=== PATIENT | male | born 1960 | race Caucasian/White ===

== ENCOUNTER 2020-03-04 07:03 | Day surgery (SDC) | payer MEDICARE, BC ==
[~2020-03-04 07:03] MED LIST: Bupivacaine 0.5% 50 ML MDV ONE; Lidocaine 1% with EPINEPHrine 1:100,000 50 ML MDV ONE
[2020-03-04] MEDS ORDERED: Dexamethasone 4 MG/ML SDV ONE (07:16)
[2020-03-04] MEDS ORDERED: Neostigmine Methylsulfate 1 MG/ML 5 ML Syringe ONE (07:16)
[2020-03-04] MEDS ORDERED: Glycopyrrolate 0.2 MG/ML 5 ML MDV ONE (07:16)
[2020-03-04] MEDS ORDERED: Succinylcholine 200 MG/10 ML MDV ONE (07:16)
[2020-03-04] MEDS ORDERED: Propofol 200 MG/20 ML SDV ONE (07:16)
[2020-03-04] MEDS ORDERED: fentaNYL 250 MCG/5 ML SDV ONE ×2 (07:16→09:20)
[2020-03-04] MEDS ORDERED: Rocuronium 50 MG/5 ML Vial ONE (07:16)
[2020-03-04] MEDS ORDERED: Ondansetron 4 MG/2 ML SDV ONE (07:16)
[2020-03-04] MEDS ORDERED: ceFAZolin 2 GM in Premix Bag 1 BAG IV ONE (07:30)
[2020-03-04] MEDS ORDERED: Sodium Chloride 0.9% 1,000 ML IV SCH (07:30)
[2020-03-04] MEDS ORDERED: metroNIDAZOLE/Normal Saline 500 MG in Premix Bag 1 BAG IV ONE (07:30)
[2020-03-04] MEDS ORDERED: Labetalol 20 MG/4 ML Syringe ONE (09:16)
[2020-03-04] MEDS ORDERED: hydrOXYzine HCL 100 MG/2 ML SDV IM PRN (09:42)
[2020-03-04] MEDS ORDERED: Bisacodyl 5 MG Tab PO PRN (09:42)
[2020-03-04] MEDS ORDERED: Benzocaine/Cetylpyridinium/Menthol Lozenge MUCMEM PRN (09:42)
[2020-03-04] MEDS ORDERED: Docusate Sodium 100 MG Cap PO PRN (09:42)
[2020-03-04] MEDS ORDERED: metFORMIN 500 MG Tab PO ONE (11:43)
[2020-03-04] MEDS ORDERED: glipiZIDE 5 MG Tab.ER PO ONE (11:44)
[2020-03-04] MEDS ORDERED: glipiZIDE 5 MG Tab PO ONE (11:50)
[2020-03-04] MEDS: Acetaminophen/oxyCODONE 325-10 MG Tab PO PRN ×2 (12:20→12:54)
--- NOTE | 2020-03-04 13:22 | OR ---
DATE OF PROCEDURE: 03/04/2020 SURGEON: Dawson Lang MD PROCEDURE: Ventral hernia repair, laparoscopic, incarcerated, 3.2 cm. COMPLICATIONS: None. SCREEN WRITER: None. ANESTHESIA: General. RISKS: Risks, benefits, alternatives, and limitations including, but not limited to infection, bleeding, perforation, and risks of mesh, reoperation, seroma, hematoma, and other risks not listed here along with chronic pain were explained to the patient and they wished to proceed. PROCEDURE IN DETAIL: The patient was placed in supine position. In the left upper abdomen, a 10 mm incision was made. A Veress needle was used to enter the abdomen without abnormality and a drop test was performed without abnormality. The abdomen was subsequently insufflated. No evidence of enterotomy or injury was noted. After Optiview trocar insertion, 2 additional 5 mm ports were entered under direct visualization, 1 in the left lower abdomen, 1 in the right. The hernia was identified and was noted to be incarcerated with omentum. This was removed using blunt and sharp dissection. The sac was removed using Harmonic Scalpel equivalent. This was delivered and not sent to pathology. A 10 cm piece of mesh was then introduced and tacked into place along with Vicryl suturing. This was approximately 1 cm in a circumferential manner and in 2 separate rings. The air was removed. The wounds were irrigated, closed with 3-0 Vicryl and 4-0 Vicryl, and Dermabond was applied. Dawson Lang MD /[id number]
[2020-03-04 13:32] VITALS: BP 145/65; PULSE 83
--- NOTE | 2020-03-04 14:12 | OR ---
DATE OF PROCEDURE: 03/04/2020 SURGEON: Dawson Lang MD PROCEDURE: Transversus abdominis plane block bilaterally. COMPLICATION: None. [employer]OD [employer] GRADER: None. RISKS: Risks, benefits, alternatives, and limitations including, but not limited to infection, bleeding, and injury to abdominal structures were explained to the patient and wished to proceed. PROCEDURE IN DETAIL: The patient was placed in supine position. The left transversus plane was identified first. Using a 13 megahertz ultrasound probe, approximately 80% of the solution was injected. The other side was then performed in a same manner, same fashion, same technique, in the same sequence using the same equipment. The patient tolerated the procedure well. Dawson Lang MD /[id number]
== END 2020-03-04 13:47 | disposition home or self-care (01) ==
LOC: JP.SDS 07:03
PROVIDERS: ATTEND Surgery
DX: K43.6 Other and unspecified ventral hernia with obstruction, without gangrene (principal); J44.9 Chronic obstructive pulmonary disease, unspecified; I25.2 Old myocardial infarction; I10 Essential (primary) hypertension; E11.9 Type 2 diabetes mellitus without complications; E78.5 Hyperlipidemia, unspecified; G89.29 Other chronic pain; M06.9 Rheumatoid arthritis, unspecified; Z95.1 Presence of aortocoronary bypass graft; Z68.39 Body mass index [BMI] 39.0-39.9, adult; G47.33 Obstructive sleep apnea (adult) (pediatric); Z79.82 Long term (current) use of aspirin; Z79.899 Other long term (current) drug therapy; Z79.84 Long term (current) use of oral hypoglycemic drugs; Z87.891 Personal history of nicotine dependence
CPT/HCPCS: 49653; A9270; C1713; C1781; J0171; J0330; J0690; J1100; J2405; J2704; J2710; J2795; J3010; J3410; J3490; J7030